=== PATIENT | male | born 1970 | race American Indian/Alaskan Native ===

== ENCOUNTER 2016-08-26 10:00 | Emergency (ER) | payer MEDICAID ==
[2016-08-26 10:01] VITALS: BMI 34.5
[2016-08-26 10:12] VITALS: TEMP 98.2
[2016-08-26] MEDS ORDERED: Labetalol 5 mg/ml Inj 20ML IV STA (10:31)
[2016-08-26 10:42] LABS: ADD MANUAL DIFF? NO
[2016-08-26 10:44] LABS: BASO # 0.03 K/mm3 (0.0-2.0); BASO % 0.5 % (0.0-3.0); EOS # 0.4 (0.0-0.7); EOS % 6.8 % (1.5-5.0); GRAN # 2.83 (1.4-6.5); GRAN % 47.9 % (50.0-68.0); HEMATOCRIT 38.6 % (42.0-52.0); LYMPH # 2.1 (1.2-3.4); LYMPH % 36.2 % (22.0-35.0); MEAN CELL VOLUME 80.9 fL (80.0-105.0); MEAN CORPUSCULAR HEMOGLOBIN 30.2 pg (25.0-35.0); MEAN CORPUSCULAR HGB CONC 37.3 g/dl (31.0-37.0); MEAN PLATELET VOLUME 9.2 fl (7.0-11.0); MONO # 0.5 (0.1-0.6); MONO % 8.6 % (1.0-6.0); PLATELET COUNT 253 10^3/uL (120.0-450.0); WHITE BLOOD COUNT 5.9 10^3/ul (4.5-11.0)
--- NOTE | 2016-08-26 10:44 | ED PDOC ---
Arrival/HPI - General Time Seen by Provider: 08/26/16 10:17 Historian: Patient - History of Present Illness Narrative History of Present Illness (Text): 08/26/16 10:26 Slick Melo is a 45 year old male whose past medical history includes Hypertension, who presents to the emergency department with elevated blood pressure after having an argument with his girlfriend. Patient states while having an argument with his girlfriend he became dizzy, starting seeing double, and began to sweat prompting police to call EMS. Patient reports he has not been compliant with his blood pressure medication and he last took in 2-3 days ago. Patient otherwise denies any fever, chills, chest pain, shortness of breath , nausea, vomiting, diarrhea, urinary symptoms, back pain, neck pain, headache, or any other complaints. PMD: None Time/Duration: 24 hours Symptom Onset: Sudden Activities at Onset: Significant Context: Other (Argument) Past Medical History - Provider Review Nursing Documentation Reviewed: Yes - Infectious Disease Hx of Infectious Diseases: None, C.diff - Tetanus Immunization Tetanus Immunization: Up to Date - Cardiac Hx Hypertension: Yes - Psychiatric Hx Depression: Yes (on occasion not treated) Hx Emotional Abuse: No Hx Physical Abuse: No Hx Substance Use: No - Surgical History Hx Orthopedic Surgery: Yes (ankle) - Anesthesia Hx Anesthesia: Yes Hx Anesthesia Reactions: No Hx Malignant Hyperthermia: No - Suicidal Assessment Feels Threatened In Home Enviroment: No Family/Social History - Physician Review Nursing Documentation Reviewed: Yes Family/Social History: No Known Family HX Smoking Status: Smoker Currrent Status Unknown Hx Alcohol Use: Yes Hx Substance Use: No Hx Substance Use Treatment: No Allergies/Home Meds Allergies/Adverse Reactions: Allergies Penicillins Allergy (Verified 04/19/16 20:37) ANAPHYLAXIS Home Medications: Home Meds Medication Instructions Recorded Confirmed amLODIPine [Norvasc] 10 mg PO DAILY 06/22/14 08/26/16 Review of Systems - Physician Review All systems were reviewed & negative as marked: Yes - Review of Systems Constitutional: Normal. absent: Fevers Eyes: Normal ENT: Normal Respiratory: Normal. absent: SOB, Cough Cardiovascular: Normal. absent: Chest Pain Gastrointestinal: Normal. absent: Abdominal Pain, Diarrhea, Nausea, Vomiting Genitourinary Male: Normal. absent: Dysuria, Frequency, Hematuria, Urinary Output Changes Musculoskeletal: Normal. absent: Back Pain, Neck Pain Skin: Normal Neurological: Dizziness. absent: Headache Endocrine: Normal Hemo/Lymphatic: Normal Psychiatric: Normal Physical Exam Vital Signs Reviewed: Yes Vital Signs Temp Pulse Resp BP Pulse Ox 08/26/16 11:40 71 16 160/98 H 98 08/26/16 11:09 67 14 161/97 H 97 08/26/16 10:43 70 16 160/100 H 97 08/26/16 10:41 74 18 160/100 H 96 08/26/16 10:11 98.2 F 80 18 167/119 H 98 Temperature: Afebrile Blood Pressure: Hypertensive Pulse: Regular Respiratory Rate: Normal Appearance: Positive for: Well-Appearing, Non-Toxic, Comfortable Pain Distress: None Mental Status: Positive for: Alert and Oriented X 3 - Systems Exam Head: Present: Atraumatic, Normocephalic Pupils: Present: PERRL Extroacular Muscles: Present: EOMI Conjunctiva: Present: Normal Mouth: Present: Moist Mucous Membranes Neck: Present: Normal Range of Motion Respiratory/Chest: Present: Clear to Auscultation, Good Air Exchange. No: Respiratory Distress, Accessory Muscle Use Cardiovascular: Present: Regular Rate and Rhythm, Normal S1, S2. No: Murmurs Abdomen: Present: Normal Bowel Sounds. No: Tenderness, Distention, Peritoneal Signs Back: Present: Normal Inspection Upper Extremity: Present: Normal Inspection. No: Cyanosis, Edema Lower Extremity: Present: Normal Inspection. No: Edema Neurological: Present: GCS=15, CN II-XII Intact, Speech Normal Skin: Present: Warm, Dry, Normal Color. No: Rashes Psychiatric: Present: Alert, Oriented x 3, Normal Insight, Normal Concentration Medical Decision Making ED Course and Treatment: 08/26/16 10:26 Impression: 45 year old male presenting with elevated blood pressure after an argument with girlfriend. Differential Diagnosis include but are not limited to: Hypertensive Urgency secondary to noncompliance with hypertension medications Plan: -- EKG -- Labs -- Trandate -- Reassess and disposition Prior Visits: Notes and results from previous visits were reviewed. Patient was last seen in the emergency department on 04/19/16 for N/V/D and high blood pressure concerns. Progress Notes: 08/26/16 10:49 EKG: Ordered, reviewed, and independently interpreted the EKG. Rate : 79 BPM Rhythm : NSR Interpretation : ST changes in Leads V2 Comparison : No change from previous EKG on 04/19/16 08/26/16 11:44 On re-evaluation, the patient feels better and is in no acute distress. BP controlled. Patient still no longer has symptoms. They only lasted a few seconds he states. I have discussed the results and plan with the patient, who expresses understanding. Patient in agreement with plan to discharged home. Patient is stable for discharge. Patient was instructed to follow up with physician/clinic in 1-2 days or return if symptoms worsen or new concerning symptoms arise. He agrees to take his medications as prescribed and states he has enough at home. - Lab Interpretations Lab Results: 08/26/16 10:30 08/26/16 10:30 Lab Results 08/26/16 10:30: Sodium 143, Potassium 3.6, Chloride 102, Carbon Dioxide 26, Anion Gap 19, BUN 6 L, Creatinine 0.8, Est GFR ( Amer) > 60, Est GFR (Non -Af Amer) > 60, Random Glucose 95, Calcium 9.5, Magnesium 1.8 08/26/16 10:30: WBC 5.9, RBC 4.77, Hgb 14.4, Hct 38.6 L, MCV 80.9, MCH 30.2, MCHC 37.3 H, RDW 15.0 H, Plt Count 253, MPV 9.2, Gran % 47.9 L, Lymph % (Auto) 36.2 H, [place] % (Auto) 8.6 H, Eos % (Auto) 6.8 H, Baso % (Auto) 0.5, Gran # 2.83 , Lymph # 2.1, [place] # 0.5, Eos # 0.4, Baso # 0.03 I have reviewed the lab results: Yes - Medication Orders Current Medication Orders: Discontinued Medications Labetalol HCl (Trandate) 20 mg IV STAT STA Stop: 08/26/16 10:32 Last Admin: 08/26/16 10:37 Dose: 20 mg - Scribe Statement The provider has reviewed the documentation as recorded by the Mak Green Provider Attestation: All medical record entries made by the Mak were at my direction and personally dictated by me. I have reviewed the chart and agree that the record accurately reflects my personal performance of the history, physical exam, medical decision making, and the department course for this patient. I have also personally directed, reviewed, and agree with the discharge instructions and disposition. Disposition/Present on Arrival - Present on Arrival Any Indicators Present on Arrival: No History of DVT/PE: No History of Uncontrolled Diabetes: No Urinary Catheter: No History Surgical Site Infection Following: None - Disposition Have Diagnosis and Disposition been Completed?: Yes Diagnosis: Hypertension, poor control Disposition: HOME/ ROUTINE Disposition Time: 11:45 Patient Plan: Discharge Condition: IMPROVED Discharge Instructions (ExitCare): Hypertension (DC) Additional Instructions: Mr Melo, thank you for letting us take care of you today. Your provider was Dr. Epperson. You were treated for Hypertension. The emergency medical care you received today was directed at your acute symptoms. If you were prescribed any medication, please fill it and take as directed. It may take several days for your symptoms to resolve. Return to the Emergency Department if your symptoms worsen, do not improve, or if you have any other problems. Please contact your doctor or call one of the physicians/clinics you have been referred to that are listed on the Patient Visit Information form that is included in your discharge packet. Bring any paperwork you were given at discharge with you along with any medications you are taking to your follow up visit. Our treatment cannot replace ongoing medical care by a primary care provider (PCP) outside of the emergency department. Thank you for allowing the [facility] team to be part of your care today. If you had an X-Ray or CT scan: A Radiologist will review the ED reading if any change in treatment is needed we will contact you. If you had a blood, urine, or wound culture: It will take several days for the results, if any change in treatment is needed we will contact you. If you had an STI test: It will take 48 hours for the results. Please call after 1 week if you have not heard back. Referrals: [facility] at [facility] [place] [Outside] - Follow up with primary Forms: WORK NOTE
[2016-08-26 10:56] LABS: BLOOD UREA NITROGEN 6 mg/dL (7-21); CALCIUM 9.5 mg/dL (8.4-10.5); CARBON DIOXIDE 26 mmol/L (21-33); CHLORIDE 102 mmol/L (98-107); GFR AFRICAN-AMERICAN > 60; GLUCOSE,RANDOM 95 mg/dL (70-110); MAGNESIUM 1.8 mg/dL (1.7-2.2); POTASSIUM 3.6 mmol/L (3.6-5.0); SODIUM 143 mmol/L (132-148)
[2016-08-26 11:55] VITALS: BP 160/98; PULSE 71; RESP 16; O2SAT 98
--- NOTE | 2016-08-26 13:27 | CARD ---
APPROVED REPORT EKG Measurement Heart [id number] <Conclusion> Sinus rhythm with fusion complexes Septal infarct, age undetermined Abnormal ECG
== END 2016-08-26 11:45 | disposition home or self-care (01) ==
LOC: ED 10:00
DX: I10 Essential (primary) hypertension (principal); Z88.0 Allergy status to penicillin